=== PATIENT | male | born 1960 | race Caucasian/White ===

== ENCOUNTER 2018-09-05 05:19 | Emergency (ER) | payer MEDICARE, MEDICAID ==
[2018-09-05] MEDS ORDERED: ACETAMINOPHEN 325 MG TABLET PO ONE (07:24)
--- NOTE | 2018-09-05 08:02 | RADIOLOGY REPORT (SQ) ---
EXAM DESCRIPTION: L SPINE WHOLE COMPLETED DATE/TIME: 09/05/2018 7:51 am REASON FOR STUDY: back pain COMPARISON: None. NUMBER OF VIEWS: Five views including obliques. TECHNIQUE: AP, lateral, oblique, and sacral radiographic images acquired of the lumbar spine. LIMITATIONS: None. FINDINGS: MINERALIZATION: Normal. SEGMENTATION: Normal. No transitional anatomy. ALIGNMENT: There is a minimal lumbar scoliosis convex to the left which may be positional in nature. VERTEBRAE: Maintained height. No fracture or worrisome bone lesion. DISCS: Preserved height. Minimal anterior osteophytic lipping is identified. POSTERIOR ELEMENTS: Pedicles and facets are intact. No pars defect or posterior arch defects. HARDWARE: None in the spine. PARASPINAL SOFT TISSUES: Normal. PELVIS: Intact as visualized. No fractures or worrisome bone lesions. SI joints intact. OTHER: No other significant finding. IMPRESSION: Minimal degenerative changes as noted above. TECHNICAL DOCUMENTATION: JOB ID: [id number] [email or web address]- All Rights Reserved Reading location - IP/workstation name: [email or web address]
--- NOTE | 2018-09-05 08:07 | RADIOLOGY REPORT (SQ) ---
EXAM DESCRIPTION: T SPINE AP/LAT COMPLETED DATE/TIME: 09/05/2018 7:51 am REASON FOR STUDY: back pain COMPARISON: None. NUMBER OF VIEWS: Two views. TECHNIQUE: AP and lateral radiographic images acquired of the thoracic spine. LIMITATIONS: None. FINDINGS: MINERALIZATION: Normal. ALIGNMENT: Normal. No scoliosis. VERTEBRAE: No fracture or bone lesion. Maintained height, normal segmentation. DISCS: No significant loss of height or significant narrowing. No large osteophytes. HARDWARE: None in the spine. MEDIASTINUM AND SOFT TISSUES: Normal heart size and aortic contour. No soft tissue abnormality. VISUALIZED LUNG YANEZ: Clear. OTHER: No other significant finding. IMPRESSION: NO SIGNIFICANT RADIOGRAPHIC FINDING IN THE THORACIC SPINE. TECHNICAL DOCUMENTATION: JOB ID: [id number] [employer]- All Rights Reserved Reading location - IP/workstation name: [email or web address]
[2018-09-05] MEDS ORDERED: LIDOCAINE 5% (700 MG) TRANSDERMAL ADH..PATCH TP ONE (08:24)
[2018-09-05 08:36] LABS: ANION GAP 7 (5-19); BLOOD UREA NITROGEN 3 mg/dL (7-20); CALCIUM 9.3 mg/dL (8.4-10.2); CARBON DIOXIDE 32 mmol/L (22-30); CHLORIDE 104 mmol/L (98-107); GLUCOSE 96 mg/dL (75-110); POTASSIUM 4.6 mmol/L (3.6-5.0); SODIUM 143.3 mmol/L (137-145)
--- NOTE | 2018-09-05 08:55 | ER Document Report ---
HPI - HPI Patient complains to provider of: Back pain Onset: Last week Onset/Duration: Persistent Quality of pain: Achy Pain Level: 4 Context: Patient presents complaining of upper and lower back pain that started last week after lifting up a cooler. Patient states that he has had a history of low back pain in the past. Patient denies any fever. He did see his primary doctor Saturday and was given a prescription for steroids and anti- inflammatory medication although he felt that the cost of the prescriptions was too expensive. Patient denies any radiculopathy or paresthesia. Patient denies any urinary retention or incontinence. Patient also states that he has had elevated blood pressure readings on several occasions and feels that he needs to be restarted on his lisinopril. Patient states that he used to take lisinopril but has been off of it for several months. Patient without any chest pain patient dyspnea headache or urinary symptoms. Associated Symptoms: Other - Back pain. denies: Chest pain, Nonproductive cough , Productive cough Exacerbated by: Movement Relieved by: Denies Similar symptoms previously: Yes Recently seen / treated by doctor: Yes - ROS ROS below otherwise negative: Yes Systems Reviewed and Negative: Yes All other systems reviewed and negative - CONSTITUTIONAL Constitutional: DENIES: Fever, Chills - NEURO Neurology: DENIES: Headache, Weakness - CARDIOVASCULAR Cardiovascular: DENIES: Chest pain - RESPIRATORY Respiratory: DENIES: Trouble Breathing, Coughing - MUSCULOSKELETAL Musculoskeletal: REPORTS: Back Pain. DENIES: Extremity pain - DERM Skin Color: Normal Skin Problems: None Past Medical History - General Information source: Patient - Social History Smoking Status: Never Smoker Chew tobacco use (# tins/day): No Frequency of alcohol use: None Drug Abuse: None Occupation: None Family History: Reviewed & Not Pertinent Patient has suicidal ideation: No Patient has homicidal ideation: No - Past Medical History Cardiac Medical History: Reports: Hx Hypertension Endocrine Medical History: Reports: Hx Hypothyroidism Renal/ Medical History: Denies: Hx Peritoneal Dialysis Musculoskeletal Medical History: Reports Hx Arthritis, Reports Hx Gout Past Surgical History: Reports: Hx Orthopedic Surgery Vertical Provider Document - CONSTITUTIONAL Agree With Documented VS: Yes Exam Limitations: No Limitations General Appearance: WD/WN, No Apparent Distress - INFECTION CONTROL TRAVEL OUTSIDE OF THE [place] IN LAST 30 DAYS: No - HEENT HEENT: Atraumatic, Normocephalic - NECK Neck: Normal Inspection, Supple - RESPIRATORY Respiratory: Breath Sounds Normal, No Respiratory Distress - CARDIOVASCULAR Cardiovascular: Regular Rate, Regular Rhythm - BACK Back: Abnormal Inspection - Thoracic midline tenderness to the 5 through 7 area with thoracic paraspinal tenderness, lower lumbar tenderness with lumbar paraspinal tenderness. No step-offs or deformities - MUSCULOSKELETAL/EXTREMETIES Musculoskeletal/Extremeties: MICHAEL SOLIS - NEURO Level of Consciousness: Awake, Alert, Appropriate Motor/Sensory: No Motor Deficit, No Sensory Deficit Notes: No saddle anesthesia, normal strength to bilateral upper and lower extremities Normal gait, no foot drop - DERM Integumentary: Warm, Dry, No Rash Course - Re-evaluation Re-evalutation: 09/05/18 08:51 The patient presents with low back pain without signs of spinal cord compression , cauda equina syndrome, infection, aneurysm, or other serious etiology. The patient is neurologically intact. Given the extremely risk of these diagnoses further testing and evaluation for these possibilities does not appear to be indicated at this time. Patient has been instructed to return if the symptoms worsen or change in any way. - Vital Signs Vital signs: Temp Pulse Resp BP Pulse Ox 97.5 F 68 16 173/100 H 99 09/05/18 05:22 09/05/18 05:22 09/05/18 05:22 09/05/18 05:22 09/05/18 05:22 - Laboratory Result Diagrams: 09/05/18 08:00 Laboratory results interpreted by me: 09/05/18 08:00 Carbon Dioxide 32 H BUN 3 L 09/05/18 08:51 Labs- Entire Visit 09/05/18 08:00 Sodium 143.3 Potassium 4.6 Chloride 104 Carbon Dioxide 32 H Anion Gap 7 BUN 3 L Creatinine 0.96 Est GFR ( Amer) > 60 Est GFR (Non-Af Amer) > 60 Glucose 96 Calcium 9.3 - Diagnostic Test Radiology reviewed: Reports reviewed Discharge - Discharge Clinical Impression: Back pain Qualifiers: Back pain location: back pain in unspecified location Chronicity: unspecified Back pain laterality: unspecified Qualified Code(s): M54.9 - Dorsalgia, unspecified Hypertension Qualifiers: Hypertension type: unspecified Qualified Code(s): I10 - Essential (primary) hypertension Condition: Stable Disposition: HOME, SELF-CARE Instructions: High Blood Pressure ([facility]), Ice Packs ([facility]), Low Back Pain ([facility]), Muscle Relaxers ([facility]), Muscle Strain ([facility]), Upper Back Strain ([facility]) Additional Instructions: Return immediately for any new or worsening symptoms Followup with your primary care provider, call tomorrow to make a followup appointment Prescriptions: Cyclobenzaprine HCl [Flexeril 10 Mg Tablet] 10 mg PO TID #15 tablet Hydrocodone/Acetaminophen [Berry 5-325 mg Tablet] 1 tab PO Q6 PRN #8 tablet PRN Reason: Lisinopril 10 mg PO DAILY #30 tablet Referrals: CHEPE KRISHNAN MD [Primary Care Provider] - Follow up tomorrow
[2018-09-05 09:01] VITALS: BP 162/86
== END 2018-09-05 09:05 | disposition home or self-care (01) ==
LOC: ER 05:19
DX: M54.9 Dorsalgia, unspecified (principal); I10 Essential (primary) hypertension
CPT/HCPCS: 99284; 36415; 80048; 72110; 72070; A9270

== ENCOUNTER 2018-10-28 21:12 | Emergency (ER) | payer MEDICARE, MEDICAID ==
[2018-10-28] MEDS ORDERED: COLCHICINE 0.6 MG TABLET PO ONE (22:56)
[2018-10-28] MEDS ORDERED: DEXAMETHASONE SOD PHOS INJ 10 MG/1 ML VIAL IM ONE (22:56)
[2018-10-28] MEDS ORDERED: INDOMETHACIN 25 MG CAPSULE PO ONE (22:58)
--- NOTE | 2018-10-28 23:02 | ER Document Report ---
ED Extremity Problem, Lower - General Chief Complaint: Ankle Pain Stated Complaint: PAIN Time Seen by Provider: 10/28/18 22:32 Notes: 57-year-old male to emergency department for evaluation of gout. Patient has long-standing history of gouty arthritis. Affecting the left ankle at this time. States that he responds well to colchicine and steroids. Does not have a ride so cannot give him anything stronger tonight but patient is not requesting anything other than his steroids and colchicine. Denies any other complaints at this time. Pain located to the left ankle which he has had in this area before. Denies any injury to the left ankle. TRAVEL OUTSIDE OF THE [place] IN LAST 30 DAYS: No - HPI Patient complains to provider of: Pain, Swelling Location: Ankle Occurred: Yesterday Severity: Moderate Pain Level: 3 - Related Data Allergies/Adverse Reactions: No Known Allergies Allergy (Verified 09/05/18 08:28) Past Medical History - General Information source: Patient - Social History Smoking Status: Never Smoker Frequency of alcohol use: None Drug Abuse: None Lives with: Family Family History: Reviewed & Not Pertinent Patient has suicidal ideation: No Patient has homicidal ideation: No - Past Medical History Cardiac Medical History: Reports: Hx Hypertension Endocrine Medical History: Reports: Hx Hypothyroidism Renal/ Medical History: Denies: Hx Peritoneal Dialysis Musculoskeletal Medical History: Reports Hx Arthritis, Reports Hx Gout Past Surgical History: Reports: Hx Orthopedic Surgery Review of Systems - Review of Systems Constitutional: denies: Chills, Fever, Weakness Cardiovascular: denies: Chest pain, Heart racing, Dyspnea Respiratory: denies: Cough, Short of breath, Wheezing Gastrointestinal: denies: Abdominal pain, Diarrhea, Nausea, Vomiting Genitourinary: denies: Burning, Dysuria Musculoskeletal: Gout, Joint pain, Ankle swelling. denies: Back pain Skin: denies: Change in color, Lesions, Rash Neurological/Psychological: denies: Weakness, Numbness Physical Exam - Vital signs Vitals: Temp Pulse Resp BP Pulse Ox 98.3 F 72 16 159/86 H 97 10/28/18 21:25 10/28/18 21:25 10/28/18 21:25 10/28/18 21:25 10/28/18 21:25 Interpretation: Normal - General General appearance: Appears well, Alert - Respiratory Respiratory status: No respiratory distress Chest status: Nontender Breath sounds: Normal Chest palpation: Normal - Cardiovascular Rhythm: Regular Heart sounds: Normal auscultation Murmur: No - Extremities General upper extremity: Normal inspection, Nontender, Normal color, Normal ROM. No: Edema General lower extremity: Other - Right lower extremity normal. Left lower extremity demonstrates edema and tenderness to the medial and lateral aspect of the left ankle. No lymphangitic streaking. No signs of cellulitis. Strong pulses to the dorsalis pedis and posterior tibialis bilaterally - Skin Skin Temperature: Warm Skin Moisture: Dry Skin Color: Normal Course - Re-evaluation Re-evalutation: 10/28/18 23:33 Starting patient on some colchicine, indomethacin and steroids at this time. 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
[2018-10-28 23:28] VITALS: BP 139/86
== END 2018-10-28 23:27 | disposition home or self-care (01) ==
LOC: ER 21:12
DX: M1A.0720 Idiopathic chronic gout, left ankle and foot, without tophus (tophi) (principal); I10 Essential (primary) hypertension
CPT/HCPCS: 99283; 96372; A9270 ×2; J1100; J3490